=== PATIENT | male | born 1960 | race Caucasian/White ===

== ENCOUNTER 2017-12-17 18:44 | Observation (INO) | payer OTHER ==
[~2017-12-17] VITALS: Ht 190.5 cm; Wt 105.4 kg
[2017-12-17 19:07] VITALS: BP 158/85; PULSE 77; RESP 18; TEMP 98.8; O2SAT 98
[2017-12-17 20:36] VITALS: BP 167/94; PULSE 77; RESP 16; TEMP 98.1; O2SAT 97
[2017-12-17] MEDS ORDERED: TEMAZEPAM 15 MG CAP PO PRN (21:15)
[2017-12-17] MEDS: MORPHINE SULFATE 4 MG/ML INJ IV PRN (21:32)
[2017-12-17 23:51] VITALS: PULSE 80
[2017-12-18 00:34] VITALS: BP 154/74; PULSE 79; RESP 18; TEMP 98.4; O2SAT 95
[2017-12-18 04:20] VITALS: BP 154/76; PULSE 76; RESP 18; TEMP 98.4; O2SAT 97
[2017-12-18] MEDS: MORPHINE SULFATE 4 MG/ML INJ IV PRN ×2 (06:10→12:39)
[2017-12-18] MEDS ORDERED: ONDANSETRON HCL 4 MG/2 ML VIAL IV PUSH PRN (07:30)
[2017-12-18] MEDS ORDERED: ACETAMINOPHEN 500 MG CPLT PO PRN (07:30)
[2017-12-18] MEDS ORDERED: NITROGLYCERIN 0.4 MG SL 25 TABS/BTL SL PRN (07:30)
[2017-12-18] MEDS ORDERED: SODIUM CHLORIDE 0.9% FLUSH 10 ML FLUSH IV FLUSH PRN (07:30)
[2017-12-18 07:42] VITALS: O2SAT 97
[2017-12-18 08:52] VITALS: BP 163/93; PULSE 81; RESP 18; TEMP 98.4; O2SAT 95
--- NOTE | 2017-12-18 08:56 | HHI.HP ---
HPI Primary Care Physician Unknown Chief Complaint Chest pain History of Present Illness 57-year-old male with history of coronary artery disease with CABG 3 (2013) currently not on any medications presents to ER for further evaluation of chest pain. Onset evening. Location left anterior chest. Characteristic dull ache, occasional sharpness. Severity mild. Radiation to left scapula. Duration constant. Precipitating factors touching area. Relieving factors pain medication given in ER. Movement of keeping left arm above head improves pain "somewhat." No recent injury. Review of Systems General: No fatigue,weakness, fever, chills, recent illness, or change in appetite. HEENT: No SEBASTIAN, no vision changes, no nasal congestion or drainage, no dysphasia CV: Continues to have chest wall discomfort as stated above. No CP, pressure, palpitations, or dizziness. History of claudication, reports diagnosis PVD. RESP: No SOB, cough, wheeze, or history of asthma. GI: No nausea, vomiting, bowel changes, diarrhea, constipation, pain, or distention. No unintentional weight gain or weight loss : No dysuria, urgency, frequency EXT: No lower leg edema, no paraesthesias MS: No discomfort, injury, trauma, or change in ROM NEURO: No difficulty with balance, LOC, motor/sensory deficits PSYCH: No anxiety, depression, suicidal ideation SKIN: No rashes, no concerning lesions Past Family Social History Allergies: Coded Allergies: No Known Allergies (Unverified , 12/17/17) Past Medical History CAD, A. fib, MRI, EF 40%, hyperlipidemia, hypertension, PVD Past Surgical History CABG 3 (2013- [facility]), defibrillator (2013) Reported Medications Reported Meds & Active Scripts Active No Active Prescriptions Reports taking multiple supplements "at times" not on regular basis stating "when I think of it." Magnesium, garlic tablet, CoQ10, vitamin E, vitamin B12, protein powder Active Ordered Medications Current Medications Medications (Trade) Dose Ordered Sig/Adrianne Route Start Time Stop Time Status Last Admin (Morphine Inj) 4 mg Q6H PRN IV 12/17/17 21:15 12/18/17 06:10 (Restoril) 15 mg HS PRN PO 12/17/17 21:15 (NS Flush) 2 ml UNSCH PRN IV FLUSH 12/18/17 07:30 (NS Flush) 2 ml BID IV FLUSH 12/18/17 09:00 (Tylenol) 500 mg Q4H PRN PO 12/18/17 07:30 (Zofran Inj) 4 mg Q6H PRN IV PUSH 12/18/17 07:30 (Nitrostat Sl) 0.4 mg Q5M PRN SL 12/18/17 07:30 (Aspirin) 325 mg DAILY PO 12/18/17 09:00 Family History Father CABG age 52 Social History Known coronary artery disease, hyperlipidemia, hypertension. No known diabetes. Former smoker, quit 2013. Alcohol socially, mostly on weekends. . Endorses active lifestyle. 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 2014 CABGx3 ([facility]) Physical Exam Vital Signs Vital Signs Date Time Temp Pulse Resp B/P (MAP) Pulse Ox O2 Delivery O2 Flow Rate FiO2 12/18/17 08:52 98.4 81 18 163/93 (116) 95 12/18/17 07:42 97 12/18/17 04:20 98.4 76 18 154/76 (102) 97 12/18/17 00:34 98.4 79 18 154/74 (100) 95 12/17/17 23:51 80 12/17/17 20:36 98.1 77 16 167/94 (118) 97 12/17/17 19:14 Room Air 12/17/17 19:07 98.8 77 18 158/85 (109) 98 Physical Exam GENERAL: Alert WN, WD, NAD, pleasant, male HEAD: NC, AT EYES: Sclera clear, conjunctiva without injection, pupils equal and round ENT: Mucous membranes pink and moist NECK: Supple, no masses, trachea midline CV: RRR, without murmur, rub, gallop, no JVD, S1-S2 no S3-S4. No carotid bruits. RESP: Clear lungs throughout bilateral, no crackles, wheeze, rhonchi, symmetrical chest rise, nonlabored, able to speak in full sentences ABD: Soft, NT, ND, no masses, positive bowel tones EXT: Pulses +2x4, no dependent edema MS: Normal tone x4 extremities, nontender, no obvious deformities, full range of motion NEURO: CN II through CN XII grossly intact, motor strength 5/5 PSYCH: A+O x3, pleasant affect, appropriate speech, mood, insight and judgment SKIN: Normal turgor, normal texture, no lesions, no rashes, brisk cap refill, even hair distribution Laboratory Laboratory Tests Test 12/17/17 21:35 12/18/17 01:56 Troponin I LESS THAN 0.02 LESS THAN 0.02 Imaging Chest xray completed [facility]-read as not acute findings Course EKG NSR, R BBB, t wave inversion v5-v6, Q waves inferiorly Caprini VTE Risk Assessment Caprini VTE Risk Assessment: No/Low Risk (score <= 1) Caprini Risk Assessment Model Point Value = 1 Point Value = 2 Point Value = 3 Point Value = 5 Age 41-60 Minor surgery BMI > 25 kg/m2 Swollen legs Varicose veins or History of unexplained or recurrent spontaneous Oral contraceptives or hormone replacement Sepsis (< 1 month) Serious lung disease, including pneumonia (< 1 month) Abnormal pulmonary function Acute myocardial infarction Congestive heart failure (< 1 month) History of inflammatory bowel disease Medical patient at bed rest Age 61-74 Arthroscopic surgery Major open surgery (> 45 min) Laparoscopic surgery (> 45 min) Malignancy Confined to bed (> 72 hours) Immobilizing plaster cast Central venous access Age >= 75 History of VTE Family history of VTE Factor V Leiden Prothrombin [id number] Lupus anticoagulant Anticardiolipin antibodies Elevated serum homocysteine Heparin-induced thrombocytopenia Other congenital or acquired thrombophilia Stroke (< 1 month) Elective arthroplasty Hip, pelvis, or leg fracture Acute spinal cord injury (< 1 month) Prophylaxis Regimen Total Risk Factor Score Risk Level Prophylaxis Regimen 0-1 Low Early ambulation 2 Moderate Order ONE of the following: *Sequential Compression Device (SCD) *Heparin 5000 units SQ BID 3-4 Higher Order ONE of the following medications: *Heparin 5000 units SQ TID *Enoxaparin/Lovenox 40 mg SQ daily (WT < 150 kg, CrCl > 30 mL/min) *Enoxaparin/Lovenox 30 mg SQ daily (WT < 150 kg, CrCl > 10-29 mL/min) *Enoxaparin/Lovenox 30 mg SQ BID (WT < 150 kg, CrCl > 30 mL/min) AND/OR *Sequential Compression Device (SCD) 5 or more Highest Order ONE of the following medications: *Heparin 5000 units SQ TID (Preferred with Epidurals) *Enoxaparin/Lovenox 40 mg SQ daily (WT < 150 kg, CrCl > 30 mL/min) *Enoxaparin/Lovenox 30 mg SQ daily (WT < 150 kg, CrCl > 10-29 mL/min) *Enoxaparin/Lovenox 30 mg SQ BID (WT < 150 kg, CrCl > 30 mL/min) AND *Sequential Compression Device (SCD) Assessment and Plan Assessment and Plan #1 Atypical chest pain-admitted to chest pain center. Ruled out with 3 sets of EKGs, cardiac enzymes, and monitored overnight on telemetry. Discomfort appears to be chest wall pain and easily reproduced with palpation. Will be seen and evaluated by Dr. Keen. Due to extensive cardiac history discussed likely will proceed with chemical stress test later this morning. If unremarkable, plans to be discharged home with follow-up with PCP. #2 History of CAD-strongly encouraged and stressed the importance of establishing with a cardiology with frequent yearly exams to prevent further cardiac damage and defibrillator device checks. Discussed benefits of cholesterol medications and cardiac medications in length. #3 Hypertension-continue to monitor, apparently he has weaned himself off of BP medications stating blood pressures range from 120s over 70s at home. Consider adding lisinopril. Discussed in length importance of tight blood pressure control with known heart disease and bypass surgery. #4 History of atrial fibrillation-strongly encouraged and stressed importance of anticoagulant therapies and importance of taking anticoagulants as directed by his primary provider. Petty Xiong Dec 18, 2017 08:56
[2017-12-18] MEDS ORDERED: SODIUM CHLORIDE 0.9% FLUSH 10 ML FLUSH IV FLUSH SCH (09:00)
[2017-12-18] MEDS ORDERED: ASPIRIN 325 MG TAB PO SCH (09:00)
[2017-12-18] MEDS ORDERED: REGADENOSON INJ 0.4 MG/5 ML SYR ONE (10:27)
--- NOTE | 2017-12-18 11:39 | TR ---
Date Performed: 12/18/2017 Time Performed: 10:46:56 DOCTOR: Osmani Middleton DRUG LIST: CLINICAL HISTORY: REASON FOR TEST: CHEST PAIN REASON FOR ENDING: OBSERVATION: CONCLUSION: COMMENTS: Lexiscan stress test was performed under standard four minute protocol. Radionuclide was injected one minute prior to ending the test. No electrocardiographic abormalities were present t o suggest ischemia. Nuclear imaging and interpretation are pending.
--- NOTE | 2017-12-18 11:41 | EKG ---
Date Performed: 12/18/2017 Time Performed: 01:59:57 PTAGE: 57 years EKG: Sinus rhythm INTRAVENTRICULAR CONDUCTION DELAY PROBABLE INFERIOR MYOCARDIAL INFARCTION ABNORMAL ECG Nonspecific S T and T wave abnormalities PREVIOUS TRACING : 12/17/2017 21.44 Since previous tracing, no significant change noted DOCTOR: Osmani Middleton Interpretating Date/Time 12/18/2017 11:40:45
--- NOTE | 2017-12-18 11:44 | EKG ---
Date Performed: 12/17/2017 Time Performed: 21:44:46 PTAGE: 57 years EKG: Sinus rhythm INTRAVENTRICULAR CONDUCTION DELAY PROBABLE INFERIOR MYOCARDIAL INFARCTION ABNORMAL ECG Nonspecific S T and T wave abnormalities Since PREVIOUS TRACING , no significant change noted DOCTOR: Osmani Middleton Interpretating Date/Time 12/18/2017 11:43:07
--- NOTE | 2017-12-18 12:28 | RADRPT ---
EXAM DATE/TIME: 12/18/2017 10:19 [facility] COMPARISON: CHEST SINGLE AP, December 17, 2017, 15:11. INDICATIONS : Left chest pain. Angina. Atrial fibrillation. DOSE: 35 mCi Tc99m Myoview at stress. 11 mCi Tc99m Myoview at rest. 0.4 mg Lexiscan STRESS SYMPTOMS: Dyspnea and chest pressure. EJECTION FRACTION: 32% MEDICAL HISTORY : Myocardial infarction. Hypertension. SURGICAL HISTORY : CABG Coronary catherization. ENCOUNTER: Initial ACUITY: 1 day PAIN SCALE: 3/10 LOCATION: Left chest TECHNIQUE: The patient underwent pharmacologic stress with infusion of prescribed dose. Continuous ECG tracing was monitored during stress. Gated SPECT imaging was performed after stress and conventional SPECT i maging was performed at rest. The examination was performed on a SPECT/CT scanner, both attenuation and non-corrected datasets were reviewed. FINDINGS: DISTRIBUTION: The maximum perfused segment at stress is in the anterior lateral wall. PERFUSION STUDY: Is a summed stress score of 8 with a large perfusion defect involving the inferior wall. There is no reversibility. No areas of ischemia are identified. GATED STUDY: There is global hypokinesis and apparent akinesis involving midportion of the posterior inferior wall . The ejection fraction is significantly decreased at 32%. CONCLUSION: 1. Global hypokinesis with akinesis involving the posterior inferior wall. 2. Decreased calculated ejection fraction of 32%. 3. Nonreversible large inferior wall defect consistent with an area of infarction. 4. No definite ischemia. RISK CATEGORY: High (>3% Annual Mortality Rate) Jose Angel Bello MD on December 18, 2017 at 12:21 Board Certified Radiologist. This report was verified electronically.
--- NOTE | 2017-12-18 13:28 | HHI.DCPOC ---
Discharge Care Plan Diagnosis: (1) Musculoskeletal chest pain (2) Hx of coronary artery disease Goals to Promote Your Health * To prevent worsening of your condition and complications * To maintain your health at the optimal level Directions to Meet Your Goals Take your medications as prescribed Follow your dietary instruction Follow activity as directed Keep your appointments as scheduled Take your immunizations and boosters as scheduled If your symptoms worsen call your PCP, if no PCP go to Urgent Care Center or Emergency Room Smoking is Dangerous to Your Health. Avoid second hand smoke Call the 24-hour hour crisis hotline for domestic abuse at Petty Xiong Dec 18, 2017 13:27
[2017-12-18] MEDS ORDERED: KETOROLAC TROMETHAMINE 30 MG/ML (IVP) VIAL IV PUSH ONE (14:45)
== END 2017-12-18 17:00 | disposition home or self-care (01) ==
LOC: NEPE 18:44 → NEPGCP 20:25 → UNDOADMOB 20:25 → UNDODISOB 12-18 17:00
PROVIDERS: ADMIT Internal Medicine Cardiovascular Disease; ATTEND Internal Medicine Cardiovascular Disease
DX: R07.89 Other chest pain (principal); I25.10 Atherosclerotic heart disease of native coronary artery without angina pectoris; I73.9 Peripheral vascular disease, unspecified; I48.91 Unspecified atrial fibrillation; R06.00 Dyspnea, unspecified; I10 Essential (primary) hypertension; E78.5 Hyperlipidemia, unspecified; Z87.891 Personal history of nicotine dependence; Z95.1 Presence of aortocoronary bypass graft
CPT/HCPCS: 71045; 78452; 80053; 82550; 82552; 83735; 83880; 84484; 85025; 85379; 85610; 85730; 93005; 93017; 96374; 96375; 96376; 99285; A9502; G0378; J1885; J2270; J2785